=== PATIENT | female | born 1970 | race Caucasian/White ===

== ENCOUNTER → 2017-09-15 | Outpatient (CLI) | payer OTHER ==
[~2017-09-15] MED LIST: ASPIR 8181 MG PO; CIPRO500 MG PO; HYDROCODONE-AP1 EAC6 PO; IBU600 MG PO; MEDROLDOSEPACK PO; MOBIC7.5 M1 PO; MULTIVITAMINS1 EAC7 PO; NORCO 5-325 TA1 EACH PO; RESTORIL15 MG; XANAX 0.25 MG0.25 MG PO; ZANAFLEX4 MG PO; ZOLOFT100 MG PO
== END ==
LOC: M.CT 07:30
DX: N28.1 Cyst of kidney, acquired (principal); N20.0 Calculus of kidney; M46.04 Spinal enthesopathy, thoracic region; Z90.49 Acquired absence of other specified parts of digestive tract

== ENCOUNTER 2018-03-06 11:26 | Emergency (ER) | payer OTHER ==
[~2018-03-06] VITALS: Ht 157.5 cm; Wt 54.4 kg
[~2018-03-06 11:26] MED LIST changes: -ASPIR 8181 MG PO; -IBU600 MG PO; -MEDROLDOSEPACK PO; -ZANAFLEX4 MG PO
[2018-03-06] MEDS ORDERED: ASPIR 8181 MG PO (11:36)
[2018-03-06 11:50] LABS: URINE BILIRUBIN NEGATIVE (Negative); URINE BLOOD NEGATIVE (Negative); URINE CLARITY CLEAR; URINE COLOR YELLOW; URINE GLUCOSE-RANDOM NEGATIVE (Negative); URINE KETONES NEGATIVE (Negative); URINE LEUKOCYTES-REFLEX NEGATIVE (Negative); URINE NITRITE-REFLEX NEGATIVE (Negative); URINE PROTEIN NEGATIVE (Negative); URINE UROBILINOGEN 0.2 E.U./dl (0.2-1.0)
[2018-03-06 12:19] LABS: ABSOLUTE BASOPHILS 0.1 thou/uL (0.0-0.2); ABSOLUTE EOSINOPHILS 0.2 thou/uL (0.0-0.7); ABSOLUTE LYMPHOCYTES 1.9 thou/uL (0.8-5.3); ABSOLUTE MONOCYTES 0.5 thou/uL (0.0-1.2); BASOPHILS 0.8 %; EOSINOPHILS 2.8 %; HEMATOCRIT 41.7 % (37.0-47.0); HEMOGLOBIN 14.3 gm/dL (12.0-15.0); LYMPHOCYTES 29.2 %; MCHC 34.3 g/dL (28.0-37.0); MCV 93.4 fL (80.0-100.0); MONOCYTES 7.2 %; MPV 8.3 fl. (7.2-11.1); NUCLEATED RBCS 0 /100WBC; PLATELET COUNT* 262 thou/uL (150-400); RBC 4.46 mil/uL (4.20-5.00); RDW-CV 12.8 % (10.5-14.5); WBC 6.6 thou/uL (4.0-11.0)
[2018-03-06 12:29] LABS: CALCIUM 9.1 mg/dL (8.5-10.1); CREATININE 0.6 mg/dL (0.6-1.3); POTASSIUM 3.5 mmol/L (3.5-5.1)
[2018-03-06 12:33] LABS: ALBUMIN 3.7 g/dL (3.4-5.0); TOTAL BILIRUBIN 0.2 mg/dL (<0.1-1.0); TOTAL PROTEIN 7.2 g/dL (6.4-8.2)
[2018-03-06] MEDS ORDERED: MEDROLDOSEPACK PO (13:49)
[2018-03-06] MEDS ORDERED: ZANAFLEX4 MG PO (13:49)
[2018-03-06] MEDS ORDERED: IBU600 MG PO (13:49)
[2018-03-06 14:09] VITALS: BP 103/71
== END 2018-03-06 14:05 | disposition home or self-care (01) ==
LOC: M.ERS 11:26
PROVIDERS: Nurse Practitioner Family
DX: M54.5 Low back pain (principal); J45.909 Unspecified asthma, uncomplicated; K21.9 Gastro-esophageal reflux disease without esophagitis; M19.90 Unspecified osteoarthritis, unspecified site; F41.9 Anxiety disorder, unspecified; F32.9 Major depressive disorder, single episode, unspecified; F17.210 Nicotine dependence, cigarettes, uncomplicated; Z90.710 Acquired absence of both cervix and uterus